=== PATIENT | female | born 1985 | race Caucasian/White ===

== ENCOUNTER → 2021-07-12 08:01 | Outpatient (CLI) | payer BC, SELFPAY ==
--- NOTE | ~2021-07-12 | MMUS_ITS ---
EXAMINATION: MM diagnostic kerry BI w romana, US breast BI complete HISTORY: Breast pain TECHNIQUE: Additional 3-D tomosynthesis images of the breasts were performed and synthetic 2-D images were generated. CAD analysis was submitted and interpreted. High resolution bilateral complete breas t ultrasound was performed. COMPARISON: No prior studies for comparison. BREAST PARENCHYMAL COMPOSITION: Breast composed of scattered areas of fibroglandular density FINDINGS: MAMMOGRAPHIC FINDINGS: There are no suspicious masses, calcifications or architectural distortion in either breast to sugges t malignancy. ULTRASOUND: Complete bilateral US of all 4 quadrants of the breasts and retroareolar region was reviewed. In the left breast at 2:00, 7 cm from the nipple there is a 6 mm cyst. No suspicious masses are identified i n either breast to suggest malignancy. IMPRESSION: 1. No evidence for malignancy in either breast. 2. Routine yearly screening mammogram and regular clinical breast examination are recommended. BI-RADS Category 2: Benign finding(s). Reviewed, dictated and finalized at location A. IMPRESSION: 1. No evidence for malignancy in either breast. 2. Routine yearly screening mammogram and regular clinical breast examination a re recommended. BI-RADS Category 2: Benign finding(s).
== END ==
PROVIDERS: PCP Obstetrics & Gynecology
DX: N64.4 Mastodynia (principal)
CPT/HCPCS: 76641; 77062; 77066; G0279

== ENCOUNTER 2022-08-28 12:18 | Emergency (ER) | payer BC, SELFPAY ==
[2022-08-28 12:21] VITALS: BP 144/80; PULSE 74; RESP 16; TEMP 36.8; O2SAT 100
[2022-08-28 12:34] VITALS: BP 138/77; PULSE 93; RESP 18; TEMP 36.3; O2SAT 97
--- NOTE | 2022-08-28 13:23 | ED.UPPEXIN ---
HPI - Extremity Injury (Upper) General Chief Complaint: Extremity Injury, Upper Stated Complaint: right elbow painful Time Seen by Provider: 08/28/22 13:18 Source: patient and RN notes reviewed Mode of arrival: ambulatory Limitations: no limitations History of Present Illness HPI narrative: Patient presents today complaining of swelling to her elbow. Two weeks ago she had an injury at work where she struck her elbow on the chassis of a car, causing a small laceration to her olecranon. She was subsequently seen, x-rayed, and this laceration was repaired with Steri-Strips. She states the swelling in the elbow has continued to worsen and has become more painful. She wrap sick while at work and has been taking ibuprofen without much relief. Reports the pain increases with movement and she currently rates it 4/10. She is concerned it is infected. Related Data Allergies Allergy/AdvReac Type Severity Reaction Status Date / Time glycerin Allergy Mild Swelling Verified 08/28/22 12:48 hypromellose Allergy Mild Swelling Verified 08/28/22 12:48 terbutaline Allergy Mild Hives / Verified 08/28/22 12:48 Red Face tetrahydrozoline Allergy Mild Swelling Verified 08/28/22 12:48 marek Allergy Unknown MAKES MY Verified 08/28/22 12:48 SKIN BURN Review of Systems Review of Systems: CONSTITUTIONAL: Denies body aches, fever, chills, or sweats. EYES: Denies visual changes, redness, or discharge. ENT: Denies rhinorrhea, congestion, sore throat, or otalgia. CARDIOVASCULAR: Denies chest pain, palpitations, or edema. RESPIRATORY: Denies cough or dyspnea. GASTROINTESTINAL: Denies abdominal pain, nausea, vomiting, or diarrhea. GENITOURINARY: Denies dysuria or hematuria. SKIN: Denies rash, itching, or wounds. MUSCULOSKELETAL: Denies back pain, or myalgia.+ right elbow swelling NEUROLOGIC: Denies headache, numbness, tingling, or weakness. PSYCH: Denies depression or anxiety. PMFSH Comments At time of signature, I have reviewed and agree with nursing past medical, surgical, social and family history unless otherwise noted. Please see nursing chart for further information. There is no relevant family history pertinent to the presenting complaint Exam Narrative: GENERAL: Well-appearing, well-nourished, and in no acute distress. HEAD: Normocephalic, atraumatic. EYES: EOMI. No redness or drainage. Conjunctivae normal. ENT: Mucous membranes pink and moist. NECK: Normal AROM. CHEST: No respiratory distress. EXTREMITIES: Right elbow: Obvious swelling of the olecranon bursa without induration or erythema. Full range of motion of the elbow with increased pain. Bursa is soft but tender to palpation. Distal sensation intact. Capillary refill normal. Radial pulse normal. SKIN: Warm, dry, no rash. Capillary refill normal. Normal skin turgor. NEURO: No focal deficits. Alert and oriented x3. Gait steady. PSYCH: Normal affect. No signs of depression or anxiety. Course Course Level of Care: Express Care Visit Vital Signs Vital signs: Vital Signs Temperature 98.3 F 08/28/22 12:21 Pulse Rate 74 08/28/22 12:21 Respiratory Rate 16 08/28/22 12:21 Blood Pressure 144/80 H 08/28/22 12:21 Pulse Oximetry 100 08/28/22 12:21 Oxygen Delivery Room Air 08/28/22 12:21 Temperature 97.4 F L 08/28/22 12:34 Pulse Rate 93 08/28/22 12:34 Respiratory Rate 18 08/28/22 12:34 Blood Pressure 138/77 08/28/22 12:34 Pulse Oximetry 97 08/28/22 12:34 Oxygen Delivery Room Air 08/28/22 12:34 Reviewed. Pt has been instructed to follow up with her PCP regarding her elevated blood pressure today. MDM - Extremity Injury (Upper) MDM Narrative Medical decision making narrative: Exam consistent with olecranon bursitis. Will refer patient to orthopedist for further evaluation. Patient is concerned that she may have an infection. No obvious signs of infection, but will compromise and put patient on some antibioti
== END 2022-08-28 13:32 | disposition home or self-care (01) ==
PROVIDERS: Emergency Provider Nurse Practitioner
DX: M70.21 Olecranon bursitis, right elbow (principal); I10 Essential (primary) hypertension; J45.909 Unspecified asthma, uncomplicated; K21.9 Gastro-esophageal reflux disease without esophagitis; E11.9 Type 2 diabetes mellitus without complications; E05.90 Thyrotoxicosis, unspecified without thyrotoxic crisis or storm
CPT/HCPCS: 99213; G0463

== ENCOUNTER 2023-08-28 08:31 | Emergency (ER) | payer BC, SELFPAY ==
--- NOTE | ~2023-08-28 | XR_ITS ---
EXAMINATION: XR abdomen/kub 1V DATE: 08/28/2023 09:15 INDICATION: Right flank pain. Abdominal pain. TECHNIQUE: A supine view of the abdomen was obtained. COMPARISON: CT abdomen and pelvis 01/07/2017 FINDINGS: There are no dilated loops of bowel. There is no visible urolithiasis. IMPRESSION: 1. No visible urolithiasis. Reviewed, dictated and finalized at location A. IMPRESSION: 1. No visible urolithiasis.
[2023-08-28 08:42] VITALS: BP 119/76; PULSE 96; RESP 16; O2SAT 100
--- NOTE | 2023-08-28 09:03 | ED.URI ---
HPI - URI/Sore Throat General Chief Complaint: Upper Respiratory Infection Stated Complaint: Back and Abdominal Pain, Trouble Breathing Time Seen by Provider: 08/28/23 08:50 Source: patient and RN notes reviewed Mode of arrival: ambulatory Limitations: no limitations History of Present Illness HPI Narrative: Patient presents today complaining of cough and shortness of breath for approximately 10 hours. States her asthma has become exacerbated. Denies any additional upper respiratory symptoms. She has been using her albuterol inhaler and nebulizer treatments at home. Last use was approximately 4 hours prior to arrival without much relief. She is also complaining of 8 hour history of right flank pain radiating to the right lower quadrant with some hematuria. She has tried some Tylenol with some mild relief. History of kidney stones. Related Data Home Medications Medication Instructions Recorded Confirmed albuterol sulfate 90 mcg/actuation 90 mcg inhalation DIRECTED 08/28/23 08/28/23 aerosol inhaler Allergies Allergy/AdvReac Type Severity Reaction Status Date / Time glycerin Allergy Mild Swelling Verified 08/28/22 12:48 hypromellose Allergy Mild Swelling Verified 08/28/22 12:48 terbutaline Allergy Mild Hives / Verified 08/28/22 12:48 Red Face tetrahydrozoline Allergy Mild Swelling Verified 08/28/22 12:48 marek Allergy Unknown MAKES MY Verified 08/28/22 12:48 SKIN BURN Review of Systems Review of Systems: CONSTITUTIONAL: Denies body aches, fever, chills, or sweats. EYES: Denies visual changes, redness, or discharge. ENT: Denies rhinorrhea, congestion, sore throat, or otalgia. CARDIOVASCULAR: Denies chest pain, palpitations, or edema. RESPIRATORY:+ cough, shortness of breath. GASTROINTESTINAL: Denies abdominal pain, nausea, vomiting, or diarrhea. GENITOURINARY: Denies dysuria. + right flank pain, hematuria SKIN: Denies rash, itching, or wounds. MUSCULOSKELETAL: Denies back pain, joint pain, or myalgia. NEUROLOGIC: Denies headache, numbness, tingling, or weakness. PSYCH: Denies depression or anxiety. [facility] Past Medical History Medical History (Updated 08/28/23 @ 09:51 by Ruth Penn, RADIOLOGIC TECHNOLOGY TEACHER, ) Asthma History of kidney stones Surgical History Surgical History (Updated 08/28/23 @ 09:05 by Ruth Penn, RADIOLOGIC TECHNOLOGY TEACHER, ) H/O: hysterectomy Comments At time of signature, I have reviewed and agree with nursing past medical, surgical, social and family history unless otherwise noted. Please see nursing chart for further information. There is no relevant family history pertinent to the presenting complaint Exam Narrative: GENERAL: Well-appearing, well-nourished, and in no acute distress. HEAD: Normocephalic, atraumatic. EYES: EOMI. No redness or drainage. Conjunctivae normal. ENT: Mucous membranes pink and moist. Nares clear. No rhinorrhea. NECK: Normal AROM. Supple. No lymphadenopathy. CHEST: No respiratory distress. Expiratory wheezing throughout HEART: Regular rate and rhythm. No murmur appreciated. Normal peripheral pulses. ABDOMEN: Soft, nondistended, normal active bowel sounds.+ tenderness to right lower quadrant. Right CVA tenderness MUSCULOSKELETAL: No bony tenderness. EXTREMITIES: Normal range of motion. No edema. SKIN: Warm, dry, no rash. Capillary refill normal. Normal skin turgor. NEURO: No focal deficits. Alert and oriented x3. Gait steady. PSYCH: Normal affect. No signs of depression or anxiety. Course Course Level of Care: Express Care Visit Vital Signs Vital signs: Vital Signs Pulse Rate 96 08/28/23 08:42 Respiratory Rate 16 08/28/23 08:42 Blood Pressure 119/76 08/28/23 08:42 Pulse Oximetry 100 08/28/23 08:42 Oxygen Delivery Room Air 08/28/23 08:42 Pulse Rate 90 08/28/23 09:40 Respiratory Rate 20 08/28/23 09:40 Blood Pressure 119/76 08/28/23 08:42 Pulse Oximetry 99 08/28/23 09:40 Oxygen Delivery Room Air
[2023-08-28 09:16] VITALS: PULSE 78; RESP 20; O2SAT 99
[2023-08-28] MEDS: IPRATROPIUM 0.5 MG/ALBUTEROL SULFATE 2.5 MG AMPUL.NEB 3 ML INHALATION (09:16)
[2023-08-28] MEDS: ALBUTEROL SULFATE NEB 2.5 MG/3 ML INH INHALATION (09:16)
[2023-08-28 09:40] VITALS: PULSE 90; RESP 20; O2SAT 99
== END 2023-08-28 09:50 | disposition short-term general hospital (02) ==
PROVIDERS: Emergency Provider Nurse Practitioner
DX: R10.9 Unspecified abdominal pain (principal); J45.901 Unspecified asthma with (acute) exacerbation; Z87.442 Personal history of urinary calculi
CPT/HCPCS: 74018; 94640; 99213; G0463

== ENCOUNTER 2023-08-28 10:08 | Emergency (ER) | payer BC, SELFPAY ==
[2023-08-28] VITALS (11 sets, daily range): BP systolic 113–135; BP diastolic 78–93; PULSE 62–87; RESP 14–27; TEMP 37; O2SAT 97–100
--- NOTE | ~2023-08-28 | CT_ITS ---
EXAMINATION: CT abdomen pelvis w con DATE: 08/28/2023 14:14 INDICATION: Right flank pain. Right lower quadrant abdominal pain. TECHNIQUE: Computed tomography (CT) of the abdomen and pelvis was performed with 100 mL Omnipaque 350 intravenous contrast. Automated exposure control and iterative reconstruction technique were employe d. The dose-length product was 1305.76 mGy-cm. COMPARISON: CT abdomen and pelvis 01/07/2017 FINDINGS: The visualized portions of the lung bases demonstrate mild atelectasis. No pleural effusion . The heart size is normal. No pericardial effusion. There are cysts in the liver measuring up to 5 m m. There are changes of cholecystectomy. The spleen, pancreas, and adrenal glands are normal. There i s cortical thinning of right kidney. There is a 4 mm cyst in left kidney. There are no dilated loops of bowel. The appendix is normal. There are no pathologically enlarged lymph nodes. There is no free intraperitoneal fluid. There is mild thoracic and lumbar spondylosis. IMPRESSION: 1. No etiology for the patient's symptoms. Reviewed, dictated and finalized at location A.
--- NOTE | ~2023-08-28 | XR_ITS ---
EXAMINATION: XR chest 2V DATE: 08/28/2023 10:51 INDICATION: Shortness of breath and chest tightness. Right flank pain radiating to the groin. TECHNIQUE: PA and lateral views of the chest were obtained. COMPARISON: Chest radiograph dated 08/25/2010 FINDINGS: The lungs are clear with no focal airspace opacities, pulmonary edema, pleural effusion or pneumothor ax. The cardiomediastinal silhouette is normal. Cholecystectomy clips in right upper quadrant. IMPRESSION: 1. No acute cardiopulmonary disease. Reviewed, dictated and finalized at location B.
--- NOTE | 2023-08-28 10:10 | ECG_ITS ---
Test Date: 2023-08-28 10:14:25 Measurements Intervals [place] Rate: 91 P: 24 UT: 176 QRS: -46 QRSD: 84 T: 44 QT: 360 QTc: 443 Interpretive Statements SINUS RHYTHM LEFT AXIS DEVIATION [QRS AXIS < -30] LOW QRS VOLTAGE IN PRECORDIAL LEADS [QRS DEFLECTION < 1.0 mV IN CHEST LEADS] POOR R-WAVE PROGRESSION ABNORMAL ECG No previous ECG available for comparison Electronically Signed On 08-28-2023 15:54:45 CDT by Arnold Murillo M.D.
[2023-08-28 10:36] LABS: Basophils Percent Auto 0.3 % (0.2-1.2); Eosinophils Absolute Auto 0.2 K/mm3 (0-0.3); Eosinophils Percent Auto 2.7 % (0-4.4); Hematocrit 41.7 % (37.0-47.0); Hemoglobin 13.9 g/dL (12.0-15.0); Immature Granulocyte Absolute 0.03 K/mm3 (0.00-0.031); Immature Granulocyte Percent A 0.3 % (0-0.5); Lymphocytes Absolute Auto 2.26 K/mm3 (0.9-3.2); Lymphocytes Percent Auto 26.1 % (18.3-44.2); Mean Corpuscular HGB Conc 33.3 g/dl (32-36); Mean Corpuscular Hemoglobin 29.9 pg (26-34); Mean Corpuscular Volume 89.7 fl (80-100); Mean Platelet Volume 10.5 fl (7.4-10.4); Monocytes Absolute Auto 0.7 K/mm3 (0.1-0.6); Monocytes Percent Auto 7.8 % (2.6-8.5); Neutrophils Absolute Auto 5.4 K/mm3 (1.3-6.7); Neutrophils Percent Auto 62.8 % (45.5-73.1); Platelet Count Result 228 k/mm3 (150-375); Red Blood Count 4.65 M/mm3 (4.2-5.4); Red Cell Distribution Width 13.8 % (11.5-14.5); White Blood Count 8.7 K/mm3 (4.5-10.0)
[2023-08-28 10:41] LABS: Alanine Aminotransferase 16 U/L (6-35); Albumin Level 4.4 g/dL (3.5-5.1); Alkaline Phosphatase 116 U/L (38-126); Anion Gap 9 mmol/L (4-12); Aspartate Amino Transferase 22 U/L (14-36); Bilirubin,Total 0.6 mg/dL (0.2-1.3); Blood Urea Nitrogen 20 mg/dL (7-17); Calcium 9.2 mg/dL (8.4-10.2); Carbon Dioxide 20 mmol/L (22-30); Chloride 110 mmol/L (98-107); Estimated CRCL calculation 113 ml/min; Estimated Glomerular Filt Rate > 60; Glucose 104 mg/dL (65-110); Lipase 103 U/L (23-300); Sodium 139 mmol/L (137-145)
[2023-08-28 10:42] LABS: INR 0.8; Prothrombin Time 11.7 Seconds (11.1-14.7)
[2023-08-28 10:43] LABS: Partial Thromboplastin Time 26.7 Seconds (22.3-36.8)
[2023-08-28 10:53] LABS: Troponin I < 0.012 ng/mL (0.000-0.034)
[2023-08-28] MEDS: ASPIRIN 81 MG CHEWABLE TABLET 324 MG PO (12:43)
--- NOTE | 2023-08-28 12:56 | ED.ABDPAIN ---
HPI - Abdominal Pain General Chief Complaint: Abdominal Pain Stated Complaint: right flank pain, asthma exacerbation Time Seen by Provider: 08/28/23 12:47 History of Present Illness HPI narrative: 38-year-old female with history of asthma, kidney stones and UTI presents emergency department for evaluation worsening shortness of breath and some right flank pain that radiates down to her right lower quadrant. Patient states it does feel somewhat similar to her previous kidney stones but patient has no urinary frequency with this today. Related Data Home Medications Medication Instructions Recorded Confirmed albuterol sulfate 90 mcg/actuation 90 mcg inhalation DIRECTED 08/28/23 08/28/23 aerosol inhaler Allergies Allergy/AdvReac Type Severity Reaction Status Date / Time glycerin Allergy Mild Swelling Verified 08/28/23 12:42 hypromellose Allergy Mild Swelling Verified 08/28/23 12:42 terbutaline Allergy Mild Hives / Verified 08/28/23 12:42 Red Face tetrahydrozoline Allergy Mild Swelling Verified 08/28/23 12:42 marek Allergy Unknown MAKES MY Verified 08/28/23 12:42 SKIN BURN Review of Systems Review of Systems: All systems reviewed & are unremarkable except as noted in HPI and below PMFSH Past Medical History Medical History (Updated 08/28/23 @ 14:49 by William Le MD) Asthma History of kidney stones Surgical History Surgical History (Updated 08/28/23 @ 09:05 by Ruth Penn, [facility], ) H/O: hysterectomy Exam Narrative: APPEARANCE: Well appearing, no pain, no distress, well-nourished. HEAD: normocephalic, atraumatic. EYES: PERRLA/EOMI, conjunctivae clear. NOSE: Normal no drainage EARS:TMS clear with good light reflex. THROAT: Pharynx clear, no exudate. NECK: Supple. No adenopathy, no masses. RESPIRATORY: Expiratory wheeze CARDIOVASCULAR: Regular rate and rhythm without murmurs rubs or gallops. ABDOMINAL: Right flank tenderness to palpation, right lower quadrant tenderness to palpation MUSCULOSKELETAL: Moves all extremities. Strength/ROM intact, No edema, No calf tenderness. NEURO: Alert. Cranial nerves II through XII intact. Grossly intact SKIN: Warm, dry. Normal Color Course Course Emergency Course: Patient will improve treatment was discharged home with instructions for close outpatient follow-up. Vital Signs Vital signs: Vital Signs Temperature 98.6 F 08/28/23 10:28 Pulse Rate 87 08/28/23 10:28 Respiratory Rate 18 08/28/23 10:28 Blood Pressure 127/93 H 08/28/23 10:28 Pulse Oximetry 100 08/28/23 10:28 Temperature 98.6 F 08/28/23 10:28 Pulse Rate 85 08/28/23 14:33 Respiratory Rate 27 H 08/28/23 14:33 Blood Pressure 113/79 08/28/23 13:16 Pulse Oximetry 98 08/28/23 14:33 MDM - Abdominal Pain MDM Narrative Medical decision making narrative: 38-year-old female with history of asthma presented emergency department for evaluation for increased shortness of breath and right flank pain. Patient is afebrile with no leukocytosis and a stable hemoglobin of 13.9. Patient has no significant abnormalities on her CMP, lipase is negative, patient had no evidence of urinary tract infection and no blood in her urine. Patient was still having significant pain so CT scan was ordered and showed no etiology for the patient's symptoms, no appendicitis, no cystitis and no ureteral calculi. Evaluation patient states she does feel improved. Differential Diagnosis Differential diagnosis: Likely abdominal pain, acute appendicitis, calculus of kidney, constipation, diverticulitis, gastroenteritis, pancreatitis and small bowel obstruction Lab Data Attestation: I reviewed the patient's lab results. 08/28/23 10:21 08/28/23 10:21 Labs: Lab Results 08/28/23 08/28/23 08/28/23 Range/Units 10:21 13:27 13:40 WBC 8.7 (4.5-10.0) K/mm3 RBC 4.65 (4.2-5.4) M/mm3 Hgb 13.9 (12.0-15.0) g/dL Hct 41.7 (37.0
[2023-08-28] MEDS: ALBUTEROL SULFATE NEB 2.5 MG/3 ML INH INHALATION (13:06)
[2023-08-28] MEDS: SODIUM CHLORIDE 0.9% IV 1,000 ML 999 ML IV CONT (13:10)
[2023-08-28 13:42] LABS: Appearance Urine Clear (Clear); Bilirubin Urine Negative (Negative); Blood Urine Negative (Negative); Color Urine Yellow (Yellow); Glucose Urine UA Negative (Negative); Ketones Urine Negative (Negative); Leukocyte Esterase Ur Negative LEU/UL (Negative); Nitrate Urine Negative (Negative); Protein Urine Negative (Negative); Specific Grav Ur 1.025 (1.001-1.035)
[2023-08-28 13:53] LABS: Add Urine Microscopic? NO
[2023-08-28 14:29] LABS: Troponin I < 0.012 ng/mL (0.000-0.034)
== END 2023-08-28 15:04 | disposition home or self-care (01) ==
PROVIDERS: Emergency Provider Emergency Medicine
DX: J45.901 Unspecified asthma with (acute) exacerbation (principal); R10.9 Unspecified abdominal pain; Z87.440 Personal history of urinary (tract) infections; Z87.442 Personal history of urinary calculi; Z90.710 Acquired absence of both cervix and uterus
CPT/HCPCS: 36415; 71046; 74018; 74177; 80053; 81003; 83690; 84484; 85025; 85610; 85730; 93005; 94640; 96360; 99284; A9270; J7030; Q9967

== ENCOUNTER 2024-09-18 10:09 | Emergency (ER) | payer BC, SELFPAY ==
--- NOTE | ~2024-09-18 | XR_ITS ---
[id number] Ordering provider: Bryon Aguilar APRN History: . fall, L. lower posterior rib pain . Comparison: None. FINDINGS: BONES: No acute left rib fracture or fracture of the visualized osseous structures. LEFT LUNG: No effusions or infiltrates. No pneumothorax. SOFT TISSUES: Normal. IMPRESSION: No left rib fracture. (Note: subtle/nondisplaced rib fractures can be occult on plain films and if t here is continued clinical suspicion for rib fracture, recommend follow up CT chest.) Reviewed, dictated and finalized at location A. IMPRESSION: No left rib fracture. (Note: subtle/nondisplaced rib fractures can be occult o n plain films and if there is continued clinical suspicion for rib fracture, re commend follow up CT chest.)
--- NOTE | ~2024-09-18 | XR_ITS ---
XR shoulder LT min 2V Ordering provider: Bryon Aguilar APRN History: . pain, fall, DROM . Comparison: None. FINDINGS: BONES: No acute fracture or dislocation. JOINT SPACES: The acromioclavicular joint is normal. The glenohumeral joint is normal. SOFT TISSUES: Normal. IMPRESSION: No acute osseous abnormality left shoulder. Reviewed, dictated and finalized at location A.
[2024-09-18 10:21] VITALS: BP 136/93; PULSE 73; RESP 16; TEMP 36; O2SAT 95
--- NOTE | 2024-09-18 10:29 | ED.GENADULT ---
HPI - General Adult General Chief complaint: Unspecified Stated complaint: Back and Left Arm Injury Source: patient Mode of arrival: ambulatory Limitations: no limitations History of Present Illness HPI narrative: Pt is a 39 y/o female presenting with c/o back pain, shoulder pain. Pt reports stumbling over uneven surface yesterday, causing her to stumble into the metal frame of a semi-trailer. Pt states she hit her L. ribs, L. shoulder. Denies striking her head. Denies feeling dizzy or lightheaded prior to stumble. Reports ongoing pain since injury, rating it as a 5/10. Reports hx of rib fractures and states current pain feels similar. 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 Hx of opioid dependence, 10 years sober. Denies paresthesias. Denies work comp claim. Denies CP, SOB, or any other complaints. Related Data Home Medications ?Medication ?Instructions ?Recorded ?Confirmed ?Last Taken ?Type albuterol sulfate 90 mcg/actuation 90 mcg inhalation DIRECTED 08/28/23 08/28/23 Unknown History aerosol inhaler Allergies Allergy/AdvReac Type Severity Reaction Status Date / Time glycerin Allergy Mild Swelling Verified 09/18/24 10:14 hypromellose Allergy Mild Swelling Verified 09/18/24 10:14 terbutaline Allergy Mild Hives / Verified 09/18/24 10:14 Red Face tetrahydrozoline Allergy Mild Swelling Verified 09/18/24 10:14 marek Allergy Unknown MAKES MY Verified 09/18/24 10:14 SKIN BURN Review of Systems Review of Systems: All systems reviewed & are unremarkable except as noted in HPI and below PMFSH Past Medical History Medical History Asthma History of kidney stones Surgical History Surgical History H/O: hysterectomy Exam Narrative: GENERAL: Well-appearing, well-nourished, and in no acute distress. HEAD: Normocephalic, atraumatic. EYES: EOMI. No redness or drainage. Conjunctivae normal. ENT: Mucous membranes pink and moist. NECK: Normal AROM. Supple. CHEST: No respiratory distress. HEART: Regular rate and rhythm. Normal peripheral pulses. ABDOMEN: Soft, nontender, nondistended, normal active bowel sounds. MUSCULOSKELETAL: No spinal process tenderness. TTP over the posterior aspect of the L. lower ribs without crepitus, overlying erythema, edema, ecchymosis. Painful ROM of the L. shoulder without ecchymosis, edema, overlying erythema or ecchymosis. Reports pain to the L. shoulder at 90 degrees passive ROM (all ROM). No bony tenderness. SKIN: Warm, dry, no rash. Capillary refill normal. Normal skin turgor. NEURO: No focal deficits. Alert and oriented x3. Gait steady. PSYCH: Normal affect. No signs of depression or anxiety. Course Course Level of Care: Express Care Visit Vital Signs Vital signs: Vital Signs Temperature 96.8 F L 09/18/24 10:21 Pulse Rate 73 09/18/24 10:21 Respiratory Rate 16 09/18/24 10:21 Blood Pressure 136/93 H 09/18/24 10:21 Pulse Oximetry 09/18/24 10:21 Oxygen Delivery Room Air 09/18/24 10:21 Temperature 96.8 F L 09/18/24 10:21 Pulse Rate 73 09/18/24 10:21 Respiratory Rate 16 09/18/24 10:21 Blood Pressure 136/93 H 09/18/24 10:21 Pulse Oximetry 95 09/18/24 10:21 Oxygen Delivery Room Air 09/18/24 10:21 Medical Decision Making Vital Signs Vital Signs: Vital Signs Temperature 96.8 F L 09/18/24 10:21 Pulse Rate 73 09/18/24 10:21 Respiratory Rate 16 09/18/24 10:21 Blood Pressure 136/93 H 09/18/24 10:21 Pulse Oximetry 09/18/24 10:21 Oxygen Delivery Room Air 09/18/24 10:21 Temperature 96.8 F L 09/18/24 10:21 Pulse Rate 73 09/18/24 10:21 Respiratory Rate 16 09/18/24 10:21 Blood Pressure 136/93 H 09/18/24 10:21 Pulse Oximetry 09/18/24 10:21 Oxygen Delivery Room Air 09/18/24 10:21 Discharge Plan Discharge Clinical Impression: Rib pain on left side, Acute pain of left shoulder, Elevated blood pressure reading in office without diagnosis of hypertension Patient Disposition: Home Condition: Stable Instructions: Shoulder Pain (ED), Rib Contusion (ED) Additional Instructions: Go straight to ER should your symptoms become worse or should any new symptoms develop Patient Language: Sami Prescriptions: No Action albuterol sulfate 90 mcg/actuation HFA aerosol inhaler 90 mcg INHALATION DIRECTED albuterol sulfate 2.5 mg /3 mL (0.083 %) solution for nebulization 2.5 mg inhalation Q4H PRN (Reason: shortness of breath or wheezing) Qty: 75 0RF Follow-up/Referrals: Jose Domingo MD [Primary Care Provider] - Stand Alone Forms: Work/School Release IP Time of Disposition: 12:26
[2024-09-18] MEDS: KETOROLAC (*BKC) 60 MG/2 ML VIAL IM (11:08)
== END 2024-09-18 12:37 | disposition home or self-care (01) ==
PROVIDERS: Emergency Provider Registered Nurse; PCP Internal Medicine
DX: R07.89 Other chest pain (principal); M25.512 Pain in left shoulder; R03.0 Elevated blood-pressure reading, without diagnosis of hypertension; J45.909 Unspecified asthma, uncomplicated
CPT/HCPCS: 71101; 73030; 96372; 99214; G0463; J1885

== ENCOUNTER 2024-11-05 10:20 | Emergency (ER) | payer BC, SELFPAY ==
[2024-11-05 10:31] VITALS: BP 124/91; PULSE 74; RESP 18; TEMP 36.2; O2SAT 100
--- NOTE | 2024-11-05 10:31 | ED.URI ---
HPI - URI/Sore Throat General Chief Complaint: Upper Respiratory Infection Stated Complaint: Flu Like Time Seen by Provider: 11/05/24 10:33 Source: patient and RN notes reviewed Mode of arrival: ambulatory Limitations: no limitations History of Present Illness HPI Narrative: 39 y/o female with hx asthma and kidney stones presented for c/o Headache, body aches, sinus pressure/congestion, cough, nausea, fever/chills. Onset yesterday. Also reporting she has not urinated in 24 hours. States she has had at least 120 ounces of water along with tea, endorses bilateral flank pain. Not taking anything for symptoms. denies shortness of breath, wheezing, hematuria, vomiting, abdominal pain, constipation, diarrhea. MD elicited complaint: cough Related Data Home Medications ?Medication ?Instructions ?Recorded ?Confirmed ?Last Taken ?Type albuterol sulfate 90 mcg/actuation 90 mcg inhalation DIRECTED 08/28/23 08/28/23 Unknown History aerosol inhaler aspirin 81 mg chewable tablet 81 mg PO DAILY 11/05/24 11/05/24 Unknown History fluticasone propionate 230 2 puff inhalation Q12H 11/05/24 11/05/24 Unknown History mcg-salmeterol 21 mcg/actuation HFA inhaler (Advair HFA) levothyroxine 100 mcg tablet 100 mcg PO DAILY 11/05/24 11/05/24 Unknown History montelukast 10 mg tablet 10 mg PO QPM 11/05/24 11/05/24 Unknown History rosuvastatin 20 mg tablet 20 mg PO DAILY 11/05/24 11/05/24 Unknown History Allergies Allergy/AdvReac Type Severity Reaction Status Date / Time glycerin Allergy Mild Swelling Verified 11/05/24 10:23 hypromellose Allergy Mild Swelling Verified 11/05/24 10:23 terbutaline Allergy Mild Hives / Verified 11/05/24 10:23 Red Face tetrahydrozoline Allergy Mild Swelling Verified 11/05/24 10:23 marek Allergy Unknown MAKES MY Verified 11/05/24 10:23 SKIN BURN Review of Systems Review of Systems: CONSTITUTIONAL: Endorses malaise, body aches, chills, sweats, fever EYES: Denies visual changes, redness, or discharge ENT: Reports rhinorrhea, congestion, sinus pain, otalgia, sore throat CARDIOVASCULAR: Denies chest pain, palpitations, edema RESPIRATORY: Reports cough, post nasal drainage. Denies dyspnea GASTROINTESTINAL: reports bilateral flank pain and nausea Denies abdominal pain, vomiting, diarrhea SKIN: Denies rash or itching NEUROLOGIC: Denies headache PMFSH Past Medical History Medical History Asthma History of kidney stones Surgical History Surgical History H/O: hysterectomy Exam Narrative: GENERAL: mildly Ill-appearing, nontoxic no acute distress. EYES: conjunctivae clear ENT: Mucous membranes moist. TMs pearly cooper with dull light reflex bilaterally; no tragal tenderness. Oropharynx not erythematous without lesions or exudate, no drooling, no hoarseness, no trismus, uvula midline. No tripod positioning, muffled voice, soft palate or pharyngeal wall bulging NECK: Supple. No lymphadenopathy CHEST: Clear to auscultation, breath sounds equal. No wheezing, rhonchi, rales, or stridor. No respiratory distress, speaks in full sentences. HEART: Regular rate and rhythm. ABD: Soft, nontender. Bilateral flank tenderness with light skin palpation. SKIN: Warm, dry, no rash. NEURO: Alert and oriented x3. PSYCH: Normal mood and affect Course Course Emergency Course: Patient is aware of diagnosis, understands and agrees to treatment plan. Anticipatory guidance given. Patient agrees to follow-up as directed and is aware of reasons to seek care at the emergency department. Portions of this record may have been created with voice recognition software Level of Care: Express Care Visit Vital Signs Vital signs: Vital Signs Temperature 97.2 F L 11/05/24 10:31 Pulse Rate 74 11/05/24 10:31 Respiratory Rate 18 11/05/24 10:31 Blood Pressure 124/91 H 11/05/24 10:31 Pulse Oximetry 100 11/05/24 10:31 Oxygen Delivery Room Air 11/05/24 10:31 Temperature 97.2 F L 11/05/24 10:31 Pulse Rate 74 11/05/24 10:31 Respiratory Rate 18 11/05/24 10:31 Blood Pressure 124/91 H 11/05/24 10:31 Pulse Oximetry 100 11/05/24 10:31 Oxygen Delivery Room Air 11/05/24 10:31 reviewed Transfer Transfered to: [facility] Transportation: Other ( Private vehicle) Transfer rationale: Pt is agreeable to transfer. Requests transfer to [facility] via private vehicle. Risks of transportation reviewed with pt including injury, worsening of condition and . v/u. Report called to hospital, spoke with Leann Ward PA-C, accepting physician. Pt is in stable condition at time of transfer. Advised to remain NPO and go directly to the hospital. MDM - URI/Sore Throat MDM Narrative Medical decision making narrative: Discussed physical exam findings, neg flu, covid and strep. Pt also reporting bilateral flank pain and urinary retention x24 hours. Hx kidney stones; Advised ER transfer. Differential Diagnosis Differential diagnosis: Likely upper respiratory infection, sinusitis and viral infection Lab Data Labs: Lab Results 11/05/24 11/05/24 Range/Units 10:38 10:47 POC Influenza A Ag Negative (Negative) POC Influenza B Ag Negative (Negative) POC SARS CoV-2 Ag Negative (Negative) POC Grp A Strep Screen Negative (Negative) Discharge Plan Discharge Clinical Impression: Bilateral flank pain, Upper respiratory infection Patient Disposition: Acute Care Hospital Condition: Stable Patient Language: Greek Prescriptions: No Action albuterol sulfate 90 mcg/actuation HFA aerosol inhaler 90 mcg INHALATION DIRECTED fluticasone propion-salmeterol [Advair HFA] 230-21 mcg/actuation HFA aerosol inhaler 2 puff INHALATION Q12H levothyroxine 100 mcg tablet 100 mcg PO DAILY montelukast 10 mg tablet 10 mg PO QPM rosuvastatin 20 mg tablet 20 mg PO DAILY aspirin 81 mg tablet,chewable 81 mg PO DAILY albuterol sulfate 2.5 mg /3 mL (0.083 %) solution for nebulization 2.5 mg inhalation Q4H PRN (Reason: shortness of breath or wheezing) Qty: 75 0RF Follow-up/Referrals: Jose Domingo MD [Primary Care Provider, Hospitalist] Time of Disposition: 10:59
[2024-11-05 10:40] LABS: EDSTREPNEGPOS1 Negative (Negative)
[2024-11-05 10:50] LABS: EDCOVIDSCREEN Negative (Negative); EDINFLUASCREEN Negative (Negative); EDINFLUBSCREEN Negative (Negative)
== END 2024-11-05 11:04 | disposition short-term general hospital (02) ==
PROVIDERS: Emergency Provider Nurse Practitioner Family; PCP Internal Medicine
DX: R10.9 Unspecified abdominal pain (principal); J02.0 Streptococcal pharyngitis; Z20.822 Contact with and (suspected) exposure to COVID-19; J45.909 Unspecified asthma, uncomplicated; Z87.442 Personal history of urinary calculi; Z79.82 Long term (current) use of aspirin
CPT/HCPCS: 87081; 87426; 87804; 87880; 99213; G0463

== ENCOUNTER 2024-11-05 11:19 | Emergency (ER) | payer BC, SELFPAY ==
--- NOTE | ~2024-11-05 | CT_ITS ---
EXAMINATION: CT abdomen pelvis wo con DATE: 11/05/2024 12:30 INDICATION: Inability to urinate TECHNIQUE: Computed tomography (CT) of the abdomen and pelvis was performed without intravenous contrast. Automated exposure control and iterative reconstruction technique were employed. The dose-length product was 1097.52 mGy-cm. COMPARISON: None FINDINGS: Mild discoid atelectasis at the lingula. Heart size is normal. No pericardial or pleural effusion. Cholecystectomy clips at the gallbladder fossa. Liver, spleen, pancreas, bilateral adrenal glands and right kidney are normal. 7 mm hyperdense proteinaceous/hemorrhagic cyst at the lower pole the left kidney. Diffuse fatty infiltration of the colon likely related to body habitus. Small bowel and appendix are normal. Bladder is normal. The uterus and left ovary are not identified and have likely been surgically resected. 1.5 cm right adnexal cyst/follicle. No free intraperitoneal gas or fluid. No pathologically enlarged abdominal or pelvic lymphadenopathy. Moderate disc height loss at T11-T12. Otherwise mild lumbar and lower thoracic spondylosis. IMPRESSION: 1. No urolithiasis or acute intra-abdominal/pelvic process. Reviewed, dictated and finalized at location A.
[2024-11-05 11:22] VITALS: BP 135/94; PULSE 83; RESP 16; TEMP 36.6; O2SAT 96
[2024-11-05 11:35] LABS: Hematocrit 42.8 % (37.0-47.0); Hemoglobin 14.1 g/dL (12.0-15.0); Immature Granulocyte Percent A 0.4 % (0-0.5); Lymphocytes Absolute Auto 2.23 K/mm3 (0.9-3.2); Mean Corpuscular HGB Conc 32.9 g/dl (32-36); Mean Corpuscular Hemoglobin 29.5 pg (26-34); Mean Corpuscular Volume 89.5 fl (80-100); Nucleated Red Blood Cells Absolute Auto 0.000 K/mm3 (0.0-0.012); Nucleated Red Blood Cells Perc 0.0 % (0.0-0.2); Platelet Count Result 268 k/mm3 (150-375); Red Blood Count 4.78 M/mm3 (4.2-5.4); White Blood Count 7.3 K/mm3 (4.5-10.0)
[2024-11-05 11:39] VITALS: BP 123/94; PULSE 72; RESP 18; TEMP 36.4; O2SAT 99
--- OUTSIDE RECORDS SUMMARY | 2024-11-05 11:48 | XMS_ITS | Clinical Summary ---
Author Organization [facility] Address [facility] [place] [address] Care Team Providers Care Fence Installer Name Role Phone Jose Domingo MD Primary Care Provider [phone] Allergies No known active allergies Medications albuterol 0.63 mg/3 mL nebulizer solution Inhale by inhalation route. Active albuterol HFA (PROVENTIL HFA,VENTOLIN HFA,PROAIR HFA) 90 mcg/actuation inhaler INHALE 2 PUFFS BY MOUTH EVERY 4 HOURS NEEDED FOR SHORTNESS OF BREATH Active aspirin 81 mg capsule Take 1 capsule every day by oral route. Active furosemide (LASIX) 20 mg tablet One tablet p.o. daily as needed for swelling 5 Active levothyroxine (SYNTHROID) 100 mcg tablet TAKE 1 TABLET BY MOUTH ONCE DAILY IN THE MORNING ON AN EMPTY STOMACH Active meclizine (ANTIVERT) 25 mg tablet One p.o. t.i.d. p.r.n. for dizzy spells 5 Active methocarbamoL (ROBAXIN) 500 mg tablet TAKE 1 TABLET BY MOUTH EVERY 8 HOURS NEEDED FOR MUSCLE SPASM FOR 5 DAYS; USE WITH CAUTION, MAY CAUSE SEDATION Active multivitamin tablet Take 1 tablet by mouth daily 8 Active nicotine polacrilex (NICORETTE) 4 mg gum CHEW 1 PIECE FOR 30 MINUTES NEEDED EVERY 1-2 HOURS NEEDED FOR SMOKING CESSASTION Active ondansetron (ZOFRAN) 4 mg tablet Take 1 tablet (4 mg total) by mouth every 8 (eight) hours as needed 8 Active potassium chloride ER (Klor-Con 10) 10 mEq CR tablet Take 1 tablet p.o. with each furosemide tablet 5 Active predniSONE (DELTASONE) 20 mg tablet Take 1 tablet every day by oral route as needed. Active montelukast (SINGULAIR) 10 mg tablet Take 1 tablet (10 mg total) by mouth nightly 30 tablet 3 5 Active fluticasone propion-salmete roL (ADVAIR HFA) 230-21 mcg/actuation inhaler Inhale 2 puffs 2 (two) times a day Rinse mouth with water after use. Do not swallow. 1 each 11 5 Active Active Problems Problem Noted Date Diagnosed Date Dyspnea 05/03/2024 Moderate persistent asthma 05/03/2024 Social History Tobacco Use Types Packs/Day Years Used Date Smoking Tobacco: Some Days Cigarettes Tobacco Cessation:Ready to Q uit: Not Asked; Counseling Given: Not Answered Comments Unknown Sex and Gender Information Value Date Recorded Sex Assigned at Not on file Legal Sex Female 10:53 AM CDT Gender Identity Not on file Sexual Orientation Not on file Obstetrics History Last Filed Vital Signs Vital Sign Reading Time Taken Comments Blood Pressure 126/62 04/23/2024 1:40 PM CHARGEBACK ANALYST Pulse 91 04/23/2024 1:40 PM CHARGEBACK ANALYST Temperature 36.3 C (97.4 F) 04/23/2024 1:40 PM CHARGEBACK ANALYST Respiratory Rate 18 04/23/2024 1:40 PM CHARGEBACK ANALYST Oxygen Saturation 100% 05/06/2024 10:00 AM CHARGEBACK ANALYST Inhaled Oxygen Concentration - - Weight 101.2 kg (223 lb) 04/23/2024 1:40 PM CHARGEBACK ANALYST Height 172.1 cm (5' 7.75) 04/23/2024 1:40 PM CS T Body Mass Index 34.16 04/23/2024 1:40 PM CHARGEBACK ANALYST Plan of Treatment Health Maintenance Due Date Last Done Comments Cervical Cancer Screening 1986 Depression Screening 1986 Hepatitis C Screening 1986 DTaP/Tdap/Td Vaccine (1 - Tdap) 1997 Varicella Vaccines (1 of 2 - 13+ 2-dose series) 1999 Hepatitis B Screening 2004 Regular Well Visit/Exam 18-64 2004 Pneumococcal vaccine <65 (1 of 2 - PCV) 2005 HPV Vaccines (1 - 3-dose SCDM series) 2013 Covid-19 Vaccine ( season) 2023 04/01/2021, 09/07/2020, 08/17/2020 Influenza Vaccine (#1) 2024 [place] Care Teams Fence Installer Relationship Specialty Start Date End Date Jose Domingo MD [address] [place] [address] [place] [address] PCP - General Internal Medicine 04/24/24
--- OUTSIDE RECORDS SUMMARY | 2024-11-05 11:48 | XMS_ITS | Clinical Summary ---
Author Organization [facility] Address [address] [place] [address] Care Team Providers Care Drapery And Upholstery Measurer Name Role Phone Jose Domingo MD Primary Care Provider [phone] Social History Tobacco Use Types Packs/Day Years Used Date Smoking Tobacco: Never Assessed Comments Unknown Sex and Gender Information Value Date Recorded Sex Assigned at Not on file Legal Sex Female 8:09 PM CDT Gender Identity Not on file Sexual Orientation Not on file Plan of Treatment Health Maintenance Due Date Last Done Comments Cervical Cancer Screening Pa p Smear (Age 30 to 64) Every 3 Years 1986 Annual Physical 1989 Hepatitis C 2004 DTaP, Tdap and Td Vaccines ( 1 - Tdap) 2005 Hepatitis B Vaccines (1 of 3 - 19+ 3-dose series) 2005 HPV Vaccines (1 - 3-dose SCD M series) 2013 Cervical Cancer Screening Pa p with HPV Testing (Age 30 to 64) Every 5 Years 2016 Cervical Cancer Screening [facility] HPV 2016 COVID-19 Vaccine (2023-2 5 season) 2023 09/07/2020, 08/17/2020 Meningococcal B Vaccine Aged Out No l onger eligible based on patient's age to complete this topic Meningococcal Vaccine Aged Out No marie carmen eligible based on patient's age to complete this topic Pneumococcal Vaccine: Pediatrics (0 to 5 Years) and At-Risk Patients (6 to 49 Years) Aged Out No longer eligible b ased on patient's age to complete this topic RSV Immunizations Under 20 Months Aged Out No longer eligible b ased on patient's age to complete this topic Insurance [facility] Care Teams Drapery And Upholstery Measurer Relationship Specialty Start Date End Date Jose Domingo MD [address] [address] PCP - General INTERNAL MEDICINE 12/27/23
--- OUTSIDE RECORDS SUMMARY | 2024-11-05 11:48 | XMS_ITS | Clinical Summary ---
Author Organization [facility] Address [address] [facility] Attn: Epic Prelude ADT BRAD CEBALLOS [address] Care Team Providers Care Engraver Hand Hard Metals Name Role Phone Unavailable Primary Care Provider Unavailabl e Allergies Active Allergy Reactions Criticality Noted Date Comments Terbutaline Rash Low 02/18/2018 Tetrahydrozoline Swelling Low 02/18/2018 Medications ondansetron (ZOFRAN) 4 mg Tablet Take 1 Tablet (4 mg) by mouth every 8 hours as needed for Nausea. 20 Tablet None 02/18/2018 Active multivitamin (DAILY-CHARMAINE) tablet Take 1 Tablet by mouth daily. 02/18/2018 Active Social History Tobacco Use Types Packs/Day Years Used Date Smoking Tobacco: Every Day Cigarettes Smokeless Tobacco: Never Alcohol Use Standard Drinks/Week Comments No 0 (1 standard drink = 0.6 oz pur e alcohol) Comments Unknown Sex and Gender Information Value Date Recorded Sex Assigned at Not on file Legal Sex Female 3:40 AM TRANSFILL TECHNICIAN Gender Identity Not on file Sexual Orientation Not on file Last Filed Vital Signs Vital Sign Reading Time Taken Comments Blood Pressure 103/67 02/18/2018 4:10 AM TRANSFILL TECHNICIAN Pulse - - Temperature 36.3 C (97.4 F) 02/18/2018 12:09 AM TRANSFILL TECHNICIAN Respiratory Rate 18 02/18/2018 12:09 AM TRANSFILL TECHNICIAN Oxygen Saturation - - Inhaled Oxygen Concentration - - Weight 88.5 kg (195 lb) 02/18/2018 12:09 AM TRANSFILL TECHNICIAN Height - - Body Mass Index - - Plan of Treatment Health Maintenance Due Date Last Done Comments DTAP/TDAP/TD VACCINES (1 - Tdap) 2005 HEPATITIS B VACCINES (1 of 3 - 19+ 3-dose series) 08/2005 HPV/Cotest (21-29) 2007 HPV VACCINES (1 - 3-dose SCDM series) 2013 CERVICAL CANCER SCREENING 2016 HPV/Cotest (30-65) 2016 PAP SMEAR 2016 INFLUENZA VACCINE (#1) 2024
[2024-11-05 12:00] LABS: Alanine Aminotransferase 14 U/L (6-35); Albumin Level 4.1 g/dL (3.5-5.1); Alkaline Phosphatase 88 U/L (38-126); Anion Gap 7 mmol/L (4-12); Aspartate Amino Transferase 22 U/L (14-36); Bilirubin,Total 0.6 mg/dL (0.2-1.3); Blood Urea Nitrogen 18 mg/dL (7-17); Calcium 8.8 mg/dL (8.4-10.2); Carbon Dioxide 23 mmol/L (22-30); Chloride 107 mmol/L (98-107); Estimated CRCL calculation 106 ml/min; Estimated Glomerular Filt Rate > 60; Glucose 92 mg/dL (65-110); Potassium 4.2 mmol/L (3.4-5.0); Sodium 137 mmol/L (137-145); Total Protein 7.3 g/dL (6.3-8.2)
--- OUTSIDE RECORDS SUMMARY | 2024-11-05 12:09 | XMS_ITS | Clinical Summary ---
Author Organization [facility] Address [address] [place] [address] Care Team Providers Care Tattoo Identifier Name Role Phone Jose Domingo MD Primary Care Provider [phone] Social History Tobacco Use Types Packs/Day Years [...] Every 5 Years 2016 Cervical Cancer Screening [facility] HPV 2016 COVID-19 Vaccine (2023-2 5 season) [...] patient's age to complete this topic Insurance [facility] Care Teams Tattoo Identifier Relationship Specialty Start Date End Date Jose Domingo MD [address] [address] PCP - General INTERNAL MEDICINE 12/27/23
--- OUTSIDE RECORDS SUMMARY | 2024-11-05 12:09 | XMS_ITS | Clinical Summary ---
Author Organization [facility] Address [facility] [place] [address] Care Team Providers Care Artificial Foliage Arranger Name Role Phone Jose Domingo MD Primary Care Provider [phone] Allergies No known active allergies Medications albuterol [...] Comments Blood Pressure 126/62 04/23/2024 1:40 PM ACCOUNT SUPPORT SPECIALIST Pulse 91 04/23/2024 1:40 PM ACCOUNT SUPPORT SPECIALIST Temperature 36.3 C (97.4 F) 04/23/2024 1:40 PM ACCOUNT SUPPORT SPECIALIST Respiratory Rate 18 04/23/2024 1:40 PM ACCOUNT SUPPORT SPECIALIST Oxygen Saturation 100% 05/06/2024 10:00 AM ACCOUNT SUPPORT SPECIALIST Inhaled Oxygen Concentration - - Weight 101.2 kg (223 lb) 04/23/2024 1:40 PM ACCOUNT SUPPORT SPECIALIST Height 172.1 cm (5' 7.75) 04/23/2024 1:40 PM CS T Body Mass Index 34.16 04/23/2024 1:40 PM ACCOUNT SUPPORT SPECIALIST Plan of Treatment Health Maintenance Due Date [...] [place] Care Teams Artificial Foliage Arranger Relationship Specialty Start Date End Date Jose Domingo MD [address] [place] [address] [place] [address] PCP - General Internal Medicine 04/24/24
--- OUTSIDE RECORDS SUMMARY | 2024-11-05 12:09 | XMS_ITS | Clinical Summary ---
Author Organization [facility] Address [address] [facility] Attn: Epic Prelude ADT BRAD [place] [address] Care Team Providers Care Bag Machine Operator Name Role Phone Unavailable Primary Care Provider [...] on file Legal Sex Female 3:40 AM PAINT LINE OPERATOR Gender Identity Not on file Sexual Orientation Not on file Last Filed Vital Signs Vital Sign Reading Time Taken Comments Blood Pressure 103/67 02/18/2018 4:10 AM PAINT LINE OPERATOR Pulse - - Temperature 36.3 C (97.4 F) 02/18/2018 12:09 AM PAINT LINE OPERATOR Respiratory Rate 18 02/18/2018 12:09 AM PAINT LINE OPERATOR Oxygen Saturation - - Inhaled Oxygen Concentration - - Weight 88.5 kg (195 lb) 02/18/2018 12:09 AM PAINT LINE OPERATOR Height - - Body Mass Index - [...]
[2024-11-05] MEDS: LACTATED RINGERS 1,000 ML 999 ML IV CONT ×3 (12:17→12:19)
--- NOTE | 2024-11-05 12:30 | PC.NURSE ---
Pt states she is unable to provide urine at this time. Pt has IV fluids infusing
--- NOTE | 2024-11-05 13:09 | ED.GENADULT ---
HPI - General Adult General Chief complaint: Urogenital-Female Stated complaint: cant pee Time Seen by Provider: 11/05/24 11:52 History of Present Illness HPI narrative: This is a 39-year-old female presenting with ED with an inability to urinate. Patient says she took her kids out fishing yesterday. She got home around 6:00 p.m. and went straight to bed. She had fatigue and muscle aches with a headache. She then woke up this morning felt like she could not urinate. She has pain in her back but not in the suprapubic region. . She has a history of kidney stones. She denies fevers chest pain difficulty breathing abdominal pain. Related Data Home Medications ?Medication ?Instructions ?Recorded ?Confirmed ?Last Taken ?Type albuterol sulfate 90 mcg/actuation 90 mcg inhalation DIRECTED 08/28/23 11/05/24 Unknown History aerosol inhaler aspirin 81 mg chewable tablet 81 mg PO DAILY 11/05/24 11/05/24 Unknown History fluticasone propionate 230 2 puff inhalation Q12H 11/05/24 11/05/24 Unknown History mcg-salmeterol 21 mcg/actuation HFA inhaler (Advair HFA) levothyroxine 100 mcg tablet 100 mcg PO DAILY 11/05/24 11/05/24 Unknown History montelukast 10 mg tablet 10 mg PO QPM 11/05/24 11/05/24 Unknown History rosuvastatin 20 mg tablet 20 mg PO DAILY 11/05/24 11/05/24 Unknown History Allergies Allergy/AdvReac Type Severity Reaction Status Date / Time glycerin Allergy Mild Swelling Verified 11/05/24 10:23 hypromellose Allergy Mild Swelling Verified 11/05/24 10:23 terbutaline Allergy Mild Hives / Verified 11/05/24 10:23 Red Face tetrahydrozoline Allergy Mild Swelling Verified 11/05/24 10:23 marek Allergy Unknown MAKES MY Verified 11/05/24 10:23 SKIN BURN PMFSH Past Medical History Medical History Asthma History of kidney stones Surgical History Surgical History H/O: hysterectomy Exam Narrative: APPEARANCE: No apparent distress. Head: atraumatic. EYES: EOMI, NOSE: Atraumatic NECK: Trachea midline RESPIRATORY: No increased rate of breathing CTAB CARDIOVASCULAR: RRR, no per peripheral edema ABDOMINAL: Non-distended soft nontender no guarding rebound, bilateral CVA/parathoracic tenderness. MUSCULOSKELETAl: No obvious deformities NEURO: Alert. Moving 4/4 extremities SKIN:: Warm, dry. Normal color PSYCHIATRIC: Normal affect Course Vital Signs Vital signs: Vital Signs Temperature 97.9 F 11/05/24 11:22 Pulse Rate 83 11/05/24 11:22 Respiratory Rate 16 11/05/24 11:22 Blood Pressure 135/94 H 11/05/24 11:22 Pulse Oximetry 96 11/05/24 11:22 Temperature 97.5 F L 11/05/24 11:39 Pulse Rate 72 11/05/24 11:39 Respiratory Rate 18 11/05/24 11:39 Blood Pressure 123/94 H 11/05/24 11:39 Pulse Oximetry 99 11/05/24 11:39 Oxygen Delivery Room Air 11/05/24 11:39 Medical Decision Making [facility] Narrative Medical decision making narrative: -Course: 39-year-old female presenting with flu-like symptoms. Laboratory studies within normal limits. Viral swabs negative. Urine not indicative infection. CT abdomen pelvis with no acute findings. Results were discussed with the patient and viral syndrome is the most likely cause of her symptoms. Patient will be discharged with primary care follow-up. Given return precautions if she develops any new symptoms. Patient is confrontational during the interview and seems upset with her care. When asked what else we could do for her she said nothing and asked for a work note. -DDX includes but is not limited to: Viral syndrome, UTI, kidney stone pyelonephritis, urinary retention Vital Signs Vital Signs: Vital Signs Temperature 97.9 F 11/05/24 11:22 Pulse Rate 83 11/05/24 11:22 Respiratory Rate 16 11/05/24 11:22 Blood Pressure 135/94 H 11/05/24 11:22 Pulse Oximetry 96 11/05/24 11:22 Temperature 97.5 F L 11/05/24 11:39 Pulse Rate 72 11/05/24 11:39 Respiratory Rate 18 11/05/24 11:39 Blood Pressure 123/94 H 11/05/24 11:39 Pulse Oximetry 99 11/05/24 11:39 Oxygen Delivery Room Air 11/05/24 11:39 Lab Data 11/05/24 11:29 11/05/24 11:29 Labs: Lab Results 11/05/24 11/05/24 Range/Units 11:29 14:13 WBC 7.3 (4.5-10.0) K/mm3 RBC 4.78 (4.2-5.4) M/mm3 Hgb 14.1 (12.0-15.0) g/dL Hct 42.8 (37.0-47.0) % MCV 89.5 (80-100) fl MCH 29.5 (26-34) pg MCHC 32.9 (32-36) g/dl RDW 13.4 (11.5-14.5) % Plt Count 268 (150-375) k/mm3 MPV 9.7 (7.4-10.4) fl Immature Gran % (Auto) 0.4 (0-0.5) % Neut % (Auto) 58.0 (45.5-73.1) % Lymph % (Auto) 30.5 (18.3-44.2) % [place] % (Auto) 6.8 (2.6-8.5) % Eos % (Auto) 3.8 (0-4.4) % Baso % (Auto) 0.5 (0.2-1.2) % Lymph # (Auto) 2.23 (0.9-3.2) K/mm3 [place] # (Auto) 0.5 (0.1-0.6) K/mm3 Eos # (Auto) 0.3 (0-0.3) K/mm3 Baso # (Auto) 0.0 (0.0-0.1) K/mm3 Abs Immat Gran (auto) 0.03 (0.00-0.031) K/mm3 Absolute Neuts (auto) 4.2 (1.3-6.7) K/mm3 Absolute Nucleated RBC 0.000 (0.0-0.012) K/mm3 Nucleated RBC % 0.0 (0.0-0.2) % Sodium 137 (137-145) mmol/L Potassium 4.2 (3.4-5.0) mmol/L Chloride 107 (98-107) mmol/L Carbon Dioxide 23 (22-30) mmol/L Anion Gap 7 (4-12) mmol/L BUN 18 H (7-17) mg/dL Creatinine 0.74 (0.7-1.0) mg/dL Estim Creat Clear Calc 106 ml/min Estimated GFR > 60 (59 - ) Glucose 92 (65-110) mg/dL Calcium 8.8 (8.4-10.2) mg/dL Total Bilirubin 0.6 (0.2-1.3) mg/dL AST 22 (14-36) U/L ALT 14 (6-35) U/L Alkaline Phosphatase 88 (38-126) U/L Total Protein 7.3 (6.3-8.2) g/dL Albumin 4.1 (3.5-5.1) g/dL Urine Color Yellow (Yellow) Urine Appearance Clear (Clear) Urine pH 6.0 (5.0-9.0) Ur Specific [place] 1.009 (1.001-1.035) Urine Protein Negative (Negative) mg/dL Urine Glucose (UA) Negative (Negative) mg/dL Urine Ketones Negative (Negative) mg/dL Ur Blood (Man) Negative (Negative) Urine Nitrate Negative (Negative) Urine Bilirubin Negative (Negative) Urine Urobilinogen 0.2 (<2.0) mg/dL Leukocyte Esterase Rfl Negative (Negative) MAXI/UL Discharge Plan Discharge Clinical Impression: Acute viral syndrome Patient Disposition: Home Condition: Stable Instructions: Antibiotic Form, Viral Syndrome (ED) Additional Instructions: You were seen in the emergency department for body aches and fatigue. Please use over the counter Motrin and Tylenol as needed. Please drink plenty of fluids. Please follow-up with your primary care physician in 3-5 days. If you develop any new worsening symptoms please return to the ED for re-evaluation. Patient Language: Romansh Prescriptions: No Action albuterol sulfate 90 mcg/actuation HFA aerosol inhaler 90 mcg INHALATION DIRECTED fluticasone propion-salmeterol [Advair HFA] 230-21 mcg/actuation HFA aerosol inhaler 2 puff INHALATION Q12H levothyroxine 100 mcg tablet 100 mcg PO DAILY montelukast 10 mg tablet 10 mg PO QPM rosuvastatin 20 mg tablet 20 mg PO DAILY aspirin 81 mg tablet,chewable 81 mg PO DAILY albuterol sulfate 2.5 mg /3 mL (0.083 %) solution for nebulization 2.5 mg inhalation Q4H PRN (Reason: shortness of breath or wheezing) Qty: 75 0RF Follow-up/Referrals: Jose Domingo MD [Primary Care Provider, Hospitalist] Stand Alone Forms: Work/School Release IP
[2024-11-05] MEDS: ONDANSETRON INJ 4 MG/2 ML VIAL IV PUSH (13:11)
[2024-11-05] MEDS: ACETAMINOPHEN 500 MG TABLET 1000 MG PO (13:41)
[2024-11-05 14:21] LABS: Add Urine Microscopic? NO; Appearance Urine Clear (Clear); Glucose Urine UA Negative (Negative); Leukocyte Esterase Ur Negative LEU/UL (Negative); Nitrate Urine Negative (Negative); Specific Grav Ur 1.009 (1.001-1.035)
[2024-11-05 14:53] VITALS: BP 142/84; PULSE 51; RESP 18; TEMP 37.1; O2SAT 98
== END 2024-11-05 14:55 | disposition home or self-care (01) ==
PROVIDERS: Family Medicine; Emergency Provider Emergency Medicine; PCP Internal Medicine
DX: B34.9 Viral infection, unspecified (principal); Z87.442 Personal history of urinary calculi; Z79.82 Long term (current) use of aspirin
CPT/HCPCS: 36415; 74176; 80053; 81003; 85025; 87081; 87426; 87804; 87880; 96361; 96374; 99284; A9270; J2405; J7120